=== PATIENT | female | born 1970 | race Caucasian/White ===

== ENCOUNTER 2017-03-10 20:24 | Emergency (ER) | payer OTHER, BC ==
[~2017-03-10] VITALS: Ht 160 cm; Wt 79.2 kg
[~2017-03-10 20:24] MED LIST: AZITHROMYCIN250 MG; HALOBETASOL PRO15 G1; ZANTAC 2525 MG PO
[2017-03-10 22:53] VITALS: BP 134/107
== END 2017-03-10 22:53 | disposition home or self-care (01) ==
LOC: EME 20:24
PROC: 2W3JX1Z Immobilization of Right Finger using Splint (ICD-10-PCS; principal; 2017-03-10)
DX: S60.051A Contusion of right little finger without damage to nail, initial encounter (principal); W22.09XA Striking against other stationary object, initial encounter; Z88.0 Allergy status to penicillin
CPT/HCPCS: 73140; 99281; 99283